=== PATIENT | female | born 1965 | race Caucasian/White ===

== ENCOUNTER 2016-03-19 18:28 | Emergency (ER) | payer BC ==
[2016-03-19 19:12] VITALS: BP 139/67; PULSE 70; RESP 16; TEMP 98.1; O2SAT 97
--- NOTE | 2016-03-19 19:43 | EDPHY ---
H & P Time Seen by Provider: 03/19/16 19:28 HPI/ROS: This is a new patient. CHIEF COMPLAINT: right calf pain HISTORY OF PRESENT ILLNESS: The patient is a 50-year-old female who was skating with her daughter when she felt a sudden pop. She now has significant tenderness on the medial aspect of her right calf. Is tender to touch. It is worse with movement of the foot. She denies any numbness or tingling. She has no ankle or foot pain. She denies knee pain. She sustained no other injuries. REVIEW OF SYSTEMS: My complete review of systems is negative except as mentioned in the HPI. Past Medical/Surgical History: Noncontributory Smoking Status: Former smoker Physical Exam: General Appearance: Alert and no distress. Head: Pupils equal. Normal. Respiratory: No respiratory distress. Cardiac: regular rate and rhythm. Extremities: the patient's lower extremities appear symmetric. Patient has significant tenderness palpation over her medial right calf. The Achilles tendon appears intact. There is no palpable mass or cord. The knee, tibia ankle and foot are nontender with no signs of trauma. Skin: No rashes or lesions. Neuro: Alert. Normal mood and affect. Constitutional: Initial Vital Signs Temperature (C) 36.7 C 03/19/16 19:09 Heart Rate 70 03/19/16 19:09 Respiratory Rate 16 03/19/16 19:09 Blood Pressure 139/67 H 03/19/16 19:09 O2 Sat (%) 97 03/19/16 19:09 O2 Delivery Mode Room Air Allergies/Adverse Reactions: No Known Allergies Allergy (Unverified 03/19/16 19:08) Home Medications: Medication Instructions Recorded Hydrocodone/APAP 5/325 [[place] 1 - 2 tab PO Q4 #13 tab 03/19/16 5/325 (RX)] Valtrex 03/19/16 Medical Decision Making ED Course/Re-evaluation: I discussed possible etiologies with the patient. I answered all her questions. The patient was given a Reuben boot crutches. She was instructed to ice her calf. She will follow up with Orthopedics. She will be nonweightbearing until follow-up with Orthopedics. PQRS My PQRS negative my PQRS negative my PQRS negative my PQRS negative 134: Depression screening and followup, PRIME MD-PHQ2 (12 years and older) Over the last 2 weeks, how often have you been bothered by any of the following problems? 1. Feeling down, depressed, or hopeless? 2. Little interest or pleasure in doing things? Patient answered no to both 1 and 2 130: Documentation of medications. Reviewed all patient medications, doses, route and frequency. 226: Do you smoke? No. Differential Diagnosis: I do not feel this is a Achilles tendon rupture. Patient does have tenderness to palpation over her medial calf. This could be muscle strain. I doubt ligamentous injury. Patient does not have a palpable hematoma. I doubt compartment syndrome. Departure - Departure Disposition: Home, Routine, Self-Care Clinical Impression: Strain of calf muscle Qualifiers: Encounter type: initial encounter Laterality: right Qualifier Code: (S86.811A) Strain of other muscle(s) and tendon(s) at lower leg level, right leg, initial encounter Condition: Good Instructions: Muscle Strain (ED) Additional Instructions: You need close follow-up with Orthopedics. Apply ice to your calf every 15 minutes (on and off) for the next 2 days. Keep the leg elevated. You should be nonweightbearing until you follow up with Orthopedics. Keep your splint in place in use your crutches while ambulated. Return with increasing pain, significant swelling, numbness, tingling or any other concerns. Referrals: Mike Lagunas MD [Medical Doctor] - 3-4 days, if not improved Prescriptions: Hydrocodone/APAP 5/325 [[place] 5/325 (RX)] 1 - 2 tab PO Q4 #13 tab
== END 2016-03-19 19:57 | disposition home or self-care (01) ==
LOC: CED 18:28
DX: S86.811A Strain of other muscle(s) and tendon(s) at lower leg level, right leg, initial encounter (principal); X50.9XXA Other and unspecified overexertion or strenuous movements or postures, initial encounter; Y93.21 Activity, ice skating
CPT/HCPCS: G0463-PO; L4386

== ENCOUNTER → 2017-07-29 | Outpatient (CLI) | payer OTHER | LOC: CIMAGING 10:34 | PROVIDERS: ATTEND Internal Medicine | DX: Z12.31 Encounter for screening mammogram for malignant neoplasm of breast (principal) ==